=== PATIENT | female | born 1985 | race African-American/Black ===

== ENCOUNTER 2016-11-11 11:39 | Emergency (ER) | payer MEDICAID ==
[~2016-11-11] VITALS: Ht 172.7 cm; Wt 129.8 kg
[~2016-11-11 11:39] MED LIST: BUPR100T4 PO; MEDR150D9 IM; SERT25TA PO
[2016-11-11] MEDS ORDERED: VISCOUS LIDOCAINE 2% 15 ML UDC PO STA (12:15)
[2016-11-11] MEDS ORDERED: MAGNESIUM/ALUMINUM HYDROXIDE/SIMETHICONE 30ML UDC PO STA (12:15)
[2016-11-11 12:36] LABS: BASOPHILS % 0.7 % (0.0-2.0); EOSINOPHILS % 1.1 % (0.0-5.0); HEMATOCRIT. 37.3 % (36.0-48.0); HEMOGLOBIN. 12.1 g/dL (12.0-16.0); LYMPHOCYTES % 29.4 % (20.0-50.0); MEAN CORPUSCULAR HEMOGLOBIN 24.1 pg (28.0-32.0); MEAN CORPUSCULAR VOLUME 74.2 fL (81.0-99.0); MONOCYTES % 5.4 % (2.0-8.0); NEUTROPHILS % 63.4 % (40.0-76.0); PLATELET 257 x1000/uL (130-400); RED BLOOD CELL COUNT 5.02 mill/uL (4.2-5.4); RED CELL DISTRIBUTION WIDTH 15.3 % (11.6-14.6)
[2016-11-11 12:50] LABS: CARBON DIOXIDE 31 mEq/L (21-32); CHLORIDE 107 mEq/L (98-107)
[2016-11-11] MEDS ORDERED: ONDANSETRON 4MG ODT PO ONE (13:00)
[2016-11-11] MEDS ORDERED: MORPHINE SULFATE 10 MG/ML CPJ IM ONE (13:00)
[2016-11-11 13:04] LABS: CLARITY URINE CLEAR (CLEAR); COLOR URINE YELLOW (YELLOW); GLUCOSE URINE NEGATIVE (NEGATIVE); KETONES URINE TRACE (NEGATIVE); LEUKOCYTE ESTERASE URINE NEGATIVE (NEGATIVE); NITRITE URINE NEGATIVE (NEGATIVE); OCCULT BLOOD URINE NEGATIVE (NEGATIVE); PROTEIN URINE NEGATIVE (NEGATIVE); SPECIFIC GRAVITY URINE 1.028 (1.005-1.030)
[2016-11-11 13:09] VITALS: BP 154/91
== END 2016-11-11 14:36 | disposition home or self-care (01) ==
LOC: ER 11:39
DX: R10.9 Unspecified abdominal pain (principal); R19.7 Diarrhea, unspecified; K21.9 Gastro-esophageal reflux disease without esophagitis; Z90.49 Acquired absence of other specified parts of digestive tract
CPT/HCPCS: 36415; 80053; 81003; 81025; 83690; 85025; 96372; 99284; J2270; Q0162; Z7610

== ENCOUNTER 2017-02-18 14:37 | Emergency (ER) | payer MEDICAID ==
[~2017-02-18] VITALS: Ht 172.7 cm; Wt 105.0 kg
[2017-02-18 15:19] VITALS: BP 155/71
[2017-02-18] MEDS ORDERED: DIPHENHYDRAMINE 25MG CAPSULE PO ONE (17:30)
[2017-02-18] MEDS ORDERED: KETOROLAC 60MG/2ML VIAL IM ONE (17:30)
== END 2017-02-18 18:10 | disposition home or self-care (01) ==
LOC: ER 17:06
DX: S80.861A Insect bite (nonvenomous), right lower leg, initial encounter (principal); S80.862A Insect bite (nonvenomous), left lower leg, initial encounter; L03.90 Cellulitis, unspecified; K21.9 Gastro-esophageal reflux disease without esophagitis; Z90.49 Acquired absence of other specified parts of digestive tract; W57.XXXA Bitten or stung by nonvenomous insect and other nonvenomous arthropods, initial encounter; Y93.89 Activity, other specified; Y92.830 Public park as the place of occurrence of the external cause
CPT/HCPCS: 81025; 96372; 99283; J1885; Q0163

== ENCOUNTER → 2024-01-23 | Emergency (ER) | payer MEDICAID ==
[~2024-01-23] VITALS: Ht 167.6 cm; Wt 100.0 kg
[~2024-01-23] MED LIST changes: +ACETAMINOPHEN 325MG TABLET PO ONE; +CYCL5TAB MT; +KETOROLAC 15MG/ML VIAL IM ONE; +LIDOCAINE 5% PATCH TOP SCH
[2024-01-23 17:49] VITALS: O2SAT 98
[2024-01-23 21:05] VITALS: TEMP 36.66960; O2SAT 99
[2024-01-23 21:06] VITALS: PULSE 69
[2024-01-23] MEDS: KETOROLAC 15MG/ML VIAL IM NR (21:06)
[2024-01-23 21:07] VITALS: BP 146/89; RESP 16; TEMP 98.6
[2024-01-23] MEDS: ACETAMINOPHEN 325MG TABLET PO NR (21:07)
[2024-01-23] MEDS: LIDOCAINE 5% PATCH TOP NR (21:07)
== END ==
LOC: ER 17:34
DX: R51.9 Headache, unspecified (principal); R25.2 Cramp and spasm; F32.A Depression, unspecified; Z90.49 Acquired absence of other specified parts of digestive tract; V49.9XXA Car occupant (driver) (passenger) injured in unspecified traffic accident, initial encounter; Y93.89 Activity, other specified; Y92.89 Other specified places as the place of occurrence of the external cause; Y99.8 Other external cause status
CPT/HCPCS: 71045; 96372; 99283; J1885; Z7610